=== PATIENT | male | born 1990 | race African-American/Black ===

== ENCOUNTER 2021-11-21 22:17 | Emergency (ER) | payer OTHER ==
[2021-11-21 22:35] VITALS: BP 110/76; PULSE 72; TEMP 98; BMI 17.4
[2021-11-22] MEDS ORDERED: IBUPROFEN 400 MG TABLET (FP) PO ONE ×2 (00:33→00:35)
== END 2021-11-22 02:33 | disposition home or self-care (01) ==
LOC: JER 22:17
DX: M79.645 Pain in left finger(s) (principal)
CPT/HCPCS: 73130-TC-LT-FY; 99284-25